=== PATIENT | female | born 1990 | race Caucasian/White ===

== ENCOUNTER 2017-07-08 18:32 | Emergency (ER) | payer MEDICAID, OTHER ==
[~2017-07-08] VITALS: Ht 162.6 cm; Wt 66.4 kg
[~2017-07-08 18:32] MED LIST: SERT50TA12 PO
[2017-07-08] MEDS ORDERED: VENL-53 PO (18:54)
[2017-07-08 21:07] LABS: GLUCOSE COMMENT 1 Doctor Notified; GLUCOSE,POINT OF CARE 84 MG/DL (70-110)
[2017-07-08 21:19] VITALS: BP 118/75
== END 2017-07-08 21:21 | disposition home or self-care (01) ==
LOC: EMS 18:33
DX: R42 Dizziness and giddiness (principal); R55 Syncope and collapse; Z76.0 Encounter for issue of repeat prescription
CPT/HCPCS: 81025; 82948; 82962; 93005; 99285